=== PATIENT | female | born 1960 | race African-American/Black ===

== ENCOUNTER 2016-09-07 06:13 | Emergency (ER) | payer OTHER ==
[~2016-09-07] VITALS: Ht 167.6 cm; Wt 70.3 kg
[2016-09-07] MEDS ORDERED: Lidocaine 1% Plain 30 ml INJ ONE (07:00)
--- NOTE | 2016-09-07 07:33 | Emergency Room Report ---
History of Present Illness General Chief Complaint: Pain Source: Patient Present Illness HPI 56YO F With 2 days right knee pain with movement, swelling, "hotness." ?gout from "years ago." No recent meats/cheese/ETOH dietary indiscretion. No fever/ chills. Atraumatic. pain is sharp, 8/10, worse with full flexion. Denies URI , PNA, other recent infection or cuts. Denies taking ASA, other AC. Allergies: Coded Allergies: No Known Allergies (Unverified , 09/07/16) Patient History Past Medical History: other - ?Gout, IBS Past Surgical History: none, other - Right knee arthroscopy Pertinent Family History: none Social History: Denies: alcohol use, drug use, smoking Last Menstrual Period: Menopause Now: No Immunizations: UTD Reviewed Nursing Documentation: PMH: Agreed, PSxH: Agreed Nursing Documentation-PMH Past Medical History: No Stated History Review of Systems All Other Systems: negative except mentioned in HPI Physical Exam Vital Signs Date Time Temp Pulse Resp B/P Pulse Ox O2 Delivery O2 Flow Rate FiO2 09/07/16 06:28 99.0 97 16 137/77 100 Room Air Sp02 EP Interpretation: reviewed, normal General Appearance: normal inspection, well appearing, no apparent distress, alert, GCS 15, non-toxic Head: normocephalic, atraumatic Eyes: bilateral eye EOMI, bilateral eye PERRL ENT: normal ENT inspection, hearing grossly normal, normal voice Neck: normal inspection, full range of motion, supple, no bony tend Respiratory: normal inspection, lungs clear, normal breath sounds, no respiratory distress, no retraction, no wheezing Cardiovascular #1: regular rate, rhythm, no edema Gastrointestinal: normal inspection, normal bowel sounds, non tender, soft, no guarding, no hernia Genitourinary: no CVA tenderness Musculoskeletal: normal inspection, back normal, normal range of motion, Aleksander' s Sign negative, other - Right knee: Obvious effusion/swelling. Palpable warmth. No overlying erythema. Atraumatic. Neurologic: normal inspection, alert, oriented x3, responsive, wheel and caster repairer III-XII nml as tested, speech normal Psychiatric: normal inspection, judgement/insight normal, mood/affect normal Skin: normal inspection, normal color, no rash Medical Decision Making Diagnostic Impression: Primary Impression: Right knee pain Qualified Codes: M25.561 - Pain in right knee ER Course Labs: No leuks. H&H stable. INR WNL Afebrile. Not systemically ill. No known source of potential seeding of joint. Joint tap: 466 cells Unlikely septic joint. Possibly gout Rx Ibuprofen for inflammatory process PMD followup DC home Last Vital Signs Date Time Temp Pulse Resp B/P Pulse Ox O2 Delivery O2 Flow Rate FiO2 09/07/16 06:28 99.0 97 16 137/77 100 Room Air Status: improved Disposition: HOME, SELF-CARE Scripts Ibuprofen* (MOTRIN*) 600 Mg Tablet 600 MG ORAL THREE TIMES A DAY for knee pain, #30 TAB 0 Refills Prov: JUAN QUINTANILLA M.D. 09/07/16 Referrals: NOT CHOSEN [facility]/,REFERRING (PCP) JUAN QUINTANILLA M.D. Sep 07, 2016 07:33
[2016-09-07 08:12] LABS: BASOPHILS % (AUTO) 1.4 % (0.0-2.0); EOSINOPHILS % (AUTO) 1.4 % (0.0-3.0); LYMPHOCYTES % (AUTO) 38.4 % (20.0-45.0); MEAN CORPUSCULAR HEMOGLOBIN 29.1 PG (27.0-31.0); MEAN CORPUSCULAR HGB CONC 32.4 G/DL (32.0-36.0); MEAN CORPUSCULAR VOLUME 90 FL (80-99); MONOCYTES % (AUTO) 10.2 % (1.0-10.0); NEUTROPHILS % (AUTO) 48.6 % (45.0-75.0); PLATELET COUNT 365 K/UL (150-450); RED BLOOD COUNT 4.35 M/UL (4.20-5.40); RED CELL DISTRIBUTION WIDTH 12.5 % (11.6-14.8); WHITE BLOOD COUNT 4.6 K/UL (4.8-10.8)
[2016-09-07 08:21] LABS: ALANINE AMINOTRANSFERASE 17 U/L (3-33); ALBUMIN/GLOBULIN RATIO 1.5 (1.0-2.7); ANION GAP 14 (5-15); ASPARTATE AMINO TRANSFERASE 23 U/L (5-40); CALCIUM 9.9 mg/dL (8.6-10.2); CARBON DIOXIDE 26 mEQ/L (20-30); CHLORIDE 99 mEQ/L (98-107); CREATININE 0.8 mg/dL (0.5-0.9); GLOMERULAR FILTRATION RATE > 60 mL/min (>60); HEMOLYSIS 4; POTASSIUM 4.4 mEQ/L (3.4-4.9); SODIUM 139 mEQ/L (135-145); TOTAL PROTEIN 7.5 g/dL (6.6-8.7)
[2016-09-07 08:39] VITALS: BP 133/53
[2016-09-07 10:17] LABS: APPEARANCE, BODY FLUID CLOUDY; BD FL VOLUME 32 mL
[2016-09-07 10:18] LABS: BD FL SOURCE SYNOVIAL; BODY FLUID NUCLEATED CELLS 466 /CUMM; BODY FLUID RBC 1577 /CUMM; MONONUCLEAR WBC 12 %; POLYMORPHONUCLEAR WBC 88 %
[2016-09-07] MEDS ORDERED: IBUPROFEN600 MG ORAL (10:30)
[2016-09-07 10:45] VITALS: BP 133/53
--- NOTE | 2016-09-07 11:00 | Diagnostic Imaging Report ---
Indication: PAIN Technique: 3 views of the right knee Comparison: None Findings:No suprapatellar effusion. There is a superior pole patellar traction osteophyte. Sclerotic density is seen in the proximal tibia. There are medial and lateral osteophytes. There may be slight medial compartment degenerative joint space narrowing. No acute fractures. Impression:Degenerative changes, as described No acute bony trauma
== END 2016-09-07 10:45 | disposition home or self-care (01) ==
LOC: EMR 06:50
DX: M25.561 Pain in right knee (principal)
CPT/HCPCS: 36415; 73562; 80053; 85025; 85610; 89051; 89060; 99283; J2001

== ENCOUNTER 2016-12-12 19:17 | Emergency (ER) | payer OTHER ==
[~2016-12-12] VITALS: Ht 167.6 cm; Wt 72.6 kg
[~2016-12-12 19:17] MED LIST: IBUPROFEN600 MG ORAL
[2016-12-12 19:30] VITALS: BP 130/76
[2016-12-12] MEDS ORDERED: Methocarbamol 750mg tab ORAL ONE (19:45)
--- NOTE | 2016-12-12 19:46 | Emergency Room Report ---
History of Present Illness General Chief Complaint: Back Pain-No Injury Source: Patient Present Illness HPI 56YOF [employer] patient with 1 week right upper back pain Atraumatic Denies heavy lifting, known exacerbating activity Worse with movement Only mild improvement with home OTC med Also c/o dysuria for 1 day without assoc n/v/diarrhea, abd pain Allergies: Coded Allergies: No Known Allergies (Unverified , 09/07/16) Patient History Past Surgical History: none Pertinent Family History: none Social History: Denies: alcohol use, drug use, smoking Last Menstrual Period: NONE ANYMORE Now: No Immunizations: UTD Reviewed Nursing Documentation: PMH: Agreed, PSxH: Agreed Nursing Documentation-PMH Past Medical History: No Stated History Review of Systems All Other Systems: negative except mentioned in HPI Physical Exam Vital Signs Date Time Temp Pulse Resp B/P Pulse Ox O2 Delivery O2 Flow Rate FiO2 12/12/16 19:23 98.8 96 18 130/76 98 Room Air Sp02 EP Interpretation: reviewed, normal General Appearance: normal inspection, well appearing, no apparent distress, alert, GCS 15, non-toxic Head: normocephalic, atraumatic Eyes: bilateral eye EOMI, bilateral eye PERRL ENT: normal ENT inspection, hearing grossly normal, normal voice Neck: normal inspection, full range of motion, supple, no bony tend Respiratory: normal inspection, lungs clear, normal breath sounds, no respiratory distress, no retraction, no wheezing Cardiovascular #1: regular rate, rhythm, no edema Gastrointestinal: normal inspection, normal bowel sounds, non tender, soft, no guarding, no hernia Genitourinary: no CVA tenderness Musculoskeletal: other - Right upper scapula, palpable muscular ttp, spasm/ tightness Neurologic: normal inspection, alert, oriented x3, responsive, area forester III-XII nml as tested, motor strength/tone normal, speech normal Psychiatric: normal inspection, judgement/insight normal, mood/affect normal Medical Decision Making Diagnostic Impression: Primary Impression: Back pain Qualified Codes: M54.6 - Pain in thoracic spine Additional Impressions: Dysuria UTI (urinary tract infection) Qualified Codes: N30.01 - Acute cystitis with hematuria ER Course Upper right back pain -1 week duration - Palpable muscle spasm - Patient refused analgesia, accepted Robaxin - Has ibuprofen at home - Rx Robaxin Dysuria - UA: grossly infected - Rx Macrobid Last Vital Signs Date Time Temp Pulse Resp B/P Pulse Ox O2 Delivery O2 Flow Rate FiO2 12/12/16 19:23 98.8 96 18 130/76 98 Room Air Status: improved Disposition: HOME, SELF-CARE Scripts Nitrofurantoin Monohyd/M-Cryst* (MACROBID 100 MG*) 100 Mg Capsule 100 MG ORAL EVERY 12 HOURS for 7 Days, #14 CAP Prov: JUAN QUINTANILLA M.D. 12/12/16 Methocarbamol* (ROBAXIN-750*) 750 Mg Tablet 750 MG PO TID for 7 Days, #30 TAB 0 Refills Prov: JUAN QUINTANILLA M.D. 12/12/16 JUAN QUINTANILLA M.D. Dec 12, 2016 19:46
[2016-12-12 19:59] LABS: APPEARANCE,URINE SLIGHTLY CLOUDY; KETONES,URINE 1+ (NEGATIVE); LEUKOCYTE ESTERASE ,URINE 2+ (NEGATIVE); NITRITE,URINE POSITIVE (NEGATIVE); PH,URINE 5 (4.5-8.0); PROTEIN,URINE NEGATIVE (NEGATIVE); UROBILINOGEN,URINE NORMAL MG/DL (0.0-1.0)
[2016-12-12] MEDS ORDERED: ROBAXIN-750750 MG PO (20:03)
[2016-12-12] MEDS ORDERED: NITROFURANTOIN100 M2 ORAL (20:03)
[2016-12-12 20:20] VITALS: BP 128/74
[2016-12-12 20:42] LABS: BACTERIA,URINE MANY /HPF; SQUAMOUS EPITHELIAL CELL,UR OCCASIONAL /LPF (NONE/OCC)
== END 2016-12-12 20:20 | disposition home or self-care (01) ==
LOC: EMR 20:18
DX: M54.9 Dorsalgia, unspecified (principal); N39.0 Urinary tract infection, site not specified
CPT/HCPCS: 81003; 87086; 87181; 99284

== ENCOUNTER 2017-08-20 20:53 | Emergency (ER) | payer OTHER ==
[~2017-08-20] VITALS: Ht 167.6 cm; Wt 74.8 kg
[~2017-08-20 20:53] MED LIST changes: +NITROFURANTOIN100 M2 ORAL; +ROBAXIN-750750 MG PO
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
[2017-08-20 22:25] VITALS: BP 132/89
--- NOTE | 2017-08-21 11:41 | Diagnostic Imaging Report ---
Indication: Pain Knee pain/trauma 3 views of the right knee were obtained. Findings: No acute fracture, malalignment, or joint effusion are identified. Joint space narrowing is present with marginal spurs. The bones are osteopenic. Impression: Negative for acute findings.
== END 2017-08-20 22:28 | disposition home or self-care (01) ==
LOC: EMR 21:57
DX: S80.01XA Contusion of right knee, initial encounter (principal); V43.52XA Car driver injured in collision with other type car in traffic accident, initial encounter; Y92.410 Unspecified street and highway as the place of occurrence of the external cause
CPT/HCPCS: 99283

== ENCOUNTER 2017-11-22 03:52 | Emergency (ER) | payer OTHER ==
[~2017-11-22] VITALS: Ht 167.6 cm; Wt 70.3 kg
--- NOTE | 2017-11-22 04:23 | Emergency Room Report ---
History of Present Illness General Chief Complaint: Palpitations Source: Patient Present Illness HPI Is a 57-year-old female who is right-hand dominant. She presents with chief complaint of right arm pain and weakness for the last 4 days. She came in today because pain is going to her chest. No fever chills but no trauma. [place] heavy. Denies any neck pain. Worse with movement. No diaphoresis. No exertional component. Pain is achy in nature. 8 out of 10. Allergies: Coded Allergies: POLLEN EXTRACTS (Verified Allergy, Unknown, 08/20/17) Patient History Past Medical History: none, see triage record, old chart reviewed Past Surgical History: none Pertinent Family History: [place] Social History: Denies: smoking Now: No Immunizations: other Reviewed Nursing Documentation: PMH: Agreed Nursing Documentation-PM Past Medical History: No Stated History Review of Systems Eye: Denies: eye pain, blurred vision ENT: Denies: ear pain, nose congestion, throat swelling Respiratory: Denies: cough, shortness of breath Cardiovascular: Denies: chest pain, palpitations Gastrointestinal: Denies: abdominal pain, diarrhea, nausea, vomiting Musculoskeletal: Reports: muscle pain; Denies: back pain, joint pain Skin: Denies: rash Neurological: Denies: headache, numbness Endocrine: Denies: increased thirst, increased urine Hematologic/Lymphatic: Denies: easy bruising All Other Systems: negative except mentioned in HPI Physical Exam Vital Signs Date Time Temp Pulse Resp B/P (MAP) Pulse Ox O2 Delivery O2 Flow Rate FiO2 11/22/17 03:56 97.6 63 18 164/99 98 Room Air 97.5 vitals with high blood pressure Sp02 EP Interpretation: reviewed, normal General Appearance: well appearing, no apparent distress, alert Head: normocephalic, atraumatic Eyes: bilateral eye PERRL, bilateral eye EOMI ENT: hearing grossly normal, normal pharynx Neck: full range of motion, supple, no meningismus Respiratory: chest non-tender, lungs clear, normal breath sounds Cardiovascular #1: regular rate, rhythm, no murmur Gastrointestinal: normal bowel sounds, non tender, no mass, no organomegaly, no bruit, non-distended Musculoskeletal: back normal, gait/station normal, normal range of motion Psychiatric: mood/affect normal Skin: warm/dry Medical Decision Making Diagnostic Impression: Primary Impression: Arm pain, right ER Course Patient with right arm pain. No evidence of ACS, PE, dissection to name a few. If d-dimer is negative, can DC home with pain medication. If positive we'll get an ultrasound to rule out DVT. Lab Results Impression labs unremarkable EKG Diagnostic Results Rate: normal Rhythm: NSR ST Segments: no acute changes ASA given to the pt in ED: Yes Rhythm Strip Diag. Results Rhythm Strip Time: 06:39 EP Interpretation: yes Rate: 80 Rhythm: NSR, no PVC's, no ectopy Chest X-Ray Diagnostic Results Chest X-Ray Diagnostic Results : Chest X-Ray Ordered: Yes # of Views/Limited/Complete: 1 View Indication: Chest Pain EP Interpretation: Yes Interpretation: no consolidation, no effusion, no pneumothorax, no acute cardiopulmonary disease Impression: No acute disease Electronically Signed by: Diogenes Jimenez MD Last Vital Signs Date Time Temp Pulse Resp B/P (MAP) Pulse Ox O2 Delivery O2 Flow Rate FiO2 11/22/17 03:56 97.6 63 18 164/99 98 Room Air 97.5 Status: improved Disposition: HOME, SELF-CARE Condition: Stable Scripts Ibuprofen* (MOTRIN*) 600 Mg Tablet 600 MG ORAL THREE TIMES A DAY, #30 TAB 0 Refills Prov: DIOGENES JIMENEZ M.D. 11/22/17 Referrals: NOT CHOSEN [facility]/,REFERRING (PCP) Additional Instructions: Follow-up with your doctor in 7 days. Return if symptom worsen. DIOGENES JIMENEZ M.D. Nov 22, 2017 04:23
[2017-11-22] MEDS ORDERED: Ketorolac 30mg Inj IV ONE (04:30)
[2017-11-22] MEDS ORDERED: Aspirin Baby 81mg ORAL ONE (04:30)
[2017-11-22 05:05] VITALS: BP 155/72
[2017-11-22 05:07] LABS: BASOPHILS % (AUTO) 1.5 % (0.0-2.0); LYMPHOCYTES % (AUTO) 43.1 % (20.0-45.0); MEAN CORPUSCULAR VOLUME 88 FL (80-99); MONOCYTES % (AUTO) 6.5 % (1.0-10.0); NEUTROPHILS % (AUTO) 46.9 % (45.0-75.0); PLATELET COUNT 307 K/UL (150-450); RED BLOOD COUNT 4.11 M/UL (4.20-5.40); RED CELL DISTRIBUTION WIDTH 11.6 % (11.6-14.8); WHITE BLOOD COUNT 4.6 K/UL (4.8-10.8)
--- NOTE | 2017-11-22 05:22 | Diagnostic Imaging Report ---
EXAM: XR Chest, 1 View CLINICAL HISTORY: CP TECHNIQUE: Frontal view of the chest. COMPARISON: No relevant prior studies available. FINDINGS: Lungs: Unremarkable. No consolidation. Pleural space: Unremarkable. No pneumothorax. Heart: Unremarkable. No cardiomegaly. Mediastinum: Unremarkable. Bones/joints: Unremarkable. IMPRESSION: No acute cardiopulmonary process.
[2017-11-22 05:49] LABS: APPEARANCE,URINE CLEAR; BILIRUBIN, URINE NEGATIVE (NEGATIVE); COLOR,URINE PALE YELLOW; GLUCOSE, URINE (UA) NEGATIVE (NEGATIVE); KETONES,URINE NEGATIVE (NEGATIVE); LEUKOCYTE ESTERASE ,URINE NEGATIVE (NEGATIVE); NITRITE,URINE NEGATIVE (NEGATIVE); PH,URINE 6 (4.5-8.0); PROTEIN,URINE NEGATIVE (NEGATIVE); UROBILINOGEN,URINE NORMAL MG/DL (0.0-1.0)
[2017-11-22] MEDS ORDERED: IBUPROFEN600 MG ORAL (06:41)
[2017-11-22 06:54] LABS: ANION GAP 6 mmol/L (5-15); BLOOD UREA NITROGEN 25 mg/dL (7-18); CARBON DIOXIDE 26 MMOL/L (21-32); CHLORIDE 104 MMOL/L (98-107); CREATININE 0.9 MG/DL (0.55-1.30); POTASSIUM 4.5 MMOL/L (3.5-5.1); SODIUM 136 MMOL/L (136-145)
[2017-11-22 07:08] LABS: ALANINE AMINOTRANSFERASE 10 U/L (12-78); ALBUMIN 3.9 G/DL (3.4-5.0); ALBUMIN/GLOBULIN RATIO 1.2 (1.0-2.7); ALKALINE PHOSPHATASE 78 U/L (46-116); ASPARTATE AMINO TRANSFERASE 22 U/L (15-37); BILIRUBIN,TOTAL 0.4 MG/DL (0.2-1.0); CKMB 0.8 NG/ML (0.0-3.6); CREATINE KINASE 115 U/L (26-308)
[2017-11-22 07:55] VITALS: BP 134/83
--- NOTE | 2017-11-28 16:50 | Cardiology Report ---
APPROVED REPORT EKG Measurement Heart [id number] SC [id number] [id number] Normal sinus rhythm Low voltage QRS Cannot rule out Anterior infarct, age undetermined Abnormal ECG
== END 2017-11-22 07:56 | disposition home or self-care (01) ==
LOC: EMR 04:18
DX: M79.601 Pain in right arm (principal); R07.9 Chest pain, unspecified; Z91.018 Allergy to other foods; Z82.49 Family history of ischemic heart disease and other diseases of the circulatory system
CPT/HCPCS: 36415; 71045; 80053; 81003; 82550; 82553; 84484; 85025; 85379; 93005; 99283; J1885

== ENCOUNTER 2018-09-01 17:26 | Emergency (ER) | payer OTHER ==
[~2018-09-01] VITALS: Ht 165.7 cm; Wt 71.7 kg
[2018-09-01] MEDS ORDERED: TRAMADOL HCL50 MG ORAL (17:37)
--- NOTE | 2018-09-01 17:41 | NUR ---
ED Nurse Note: PT WALKED IN TO ER TODAY FROM HOME. AOX4. PT C/O RIGHT EAR DISCOMFORT AND DECREASED HEARING X 3-4 DAYS AGO. PT DENIES ANY PAIN OR DISCHARGE AT THIS TIME. PT DENIES ANY RECENT TRAUMA OR INJURY. HOWEVER, PT DOES ADMIT SHE HAS BEEN TRYING TO CLEAN HER EARS WITH QTIPS.
[2018-09-01 17:42] VITALS: BP 136/86
--- NOTE | 2018-09-01 18:10 | Emergency Room Report ---
History of Present Illness General Chief Complaint: Earache Source: Patient Present Illness HPI 58-year-old female presents to the emergency department complaining of muffled hearing with sensation of fullness that she describes as a 5 out of 10 in severity discomfort in the right ear progressive 5 days. Patient states she's had multiple attempts using a Q-tip to try to clean her ear but she states that she has had no relief with her attempts. Patient denies external ear pain denies discharge, blood, swollen tender lymph nodes fevers or chills. Patient denies trauma to the ear. Denies tinnitus or vertigo. Allergies: Coded Allergies: POLLEN EXTRACTS (Verified Allergy, Unknown, 08/20/17) Patient History Past Medical History: see triage record Past Surgical History: none Pertinent Family History: none Last Menstrual Period: Menopausal Reviewed Nursing Documentation: PMH: Agreed; PSxH: Agreed Review of Systems All Other Systems: negative except mentioned in HPI Physical Exam Vital Signs Date Time Temp Pulse Resp B/P (MAP) Pulse Ox O2 Delivery O2 Flow Rate FiO2 09/01/18 17:32 99.1 69 19 143/92 99 Room Air Sp02 EP Interpretation: reviewed, normal General Appearance: no apparent distress, alert, GCS 15, non-toxic Head: normocephalic, atraumatic Eyes: bilateral eye normal inspection, bilateral eye PERRL ENT: hearing grossly normal, normal voice, other - Impacted cerumen of the right ear, no external ttp, no canal swelling. Neck: full range of motion Respiratory: lungs clear, normal breath sounds, speaking full sentences Cardiovascular #1: regular rate, rhythm Gastrointestinal: soft Musculoskeletal: back normal, gait/station normal, normal range of motion, non- tender Neurologic: alert, oriented x3, responsive, motor strength/tone normal, sensory intact, speech normal, grossly normal Psychiatric: judgement/insight normal Skin: normal color, no rash, warm/dry, well hydrated Lymphatic: no adenopathy Medical Decision Making PA Attestation Dr. Ruiz is my supervising Physician whom patient management has been discussed with. Diagnostic Impression: Primary Impression: Impacted cerumen of right ear ER Course 58-year-old female presents to the emergency department complaining of muffled hearing with sensation of fullness that she describes as a 5 out of 10 in severity discomfort in the right ear progressive 5 days. Patient states she's had multiple attempts using a Q-tip to try to clean her ear but she states that she has had no relief with her attempts. Patient denies external ear pain denies discharge, blood, swollen tender lymph nodes fevers or chills. Patient denies trauma to the ear. Denies tinnitus or vertigo. Ddx considered but are not limited to OM, OE, mastoiditis, TM perforation, FB Vital signs: are WNL, pt. is afebrile H&PE are most consistent with Impacted cerumen of the Right ear canal ORDERS: none required at this time, the diagnosis is clinical -OTOSCOPY: Impacted cerumen in the Right ear canal. - Cerumen Removal: verbal consent was obtained by pt. ear curette was used to remove the cerumen from the RIGHT ear canal. Pt. tolerated well, there were no complications. re-evaluation pt. is able to hear again, there is no evidence of TM infection or rupture, canal is WNL. ED INTERVENTIONS: None required at this time. DISCHARGE: At this time pt. is stable for d/c to home. With rx for Debrox. Will provide printed patient care instructions, and any necessary prescriptions. Care plan and follow up instructions have been discussed with the patient prior to discharge. Last Vital Signs Date Time Temp Pulse Resp B/P (MAP) Pulse Ox O2 Delivery O2 Flow Rate FiO2 09/01/18 17:42 98.9 66 18 136/86 100 Room Air Disposition: HOME, SELF-CARE Condition: Stable Scripts Carbamide Peroxide (EAR WAX DROPS) 15 Ml Drops 4 DROP OT DAILY, #15 ML Prov: Terri Ji 09/01/18 Patient Instructions: Cerumen Impaction Additional Instructions: Take medications as directed. Follow up with a Primary Care Provider in 3-5 days, even if your symptoms have resolved. --Please review list of primary care clinics, if you do not already have a primary care provider Return sooner to ED if new symptoms occur, or current symptoms become worse. - Please note that this Emergency Department Report was dictated using [email or web address] design engineer technology software, occasionally this can lead to erroneous entry secondary to interpretation by the dictation equipment. Terri Ji Sep 01, 2018 18:10
[2018-09-01] MEDS ORDERED: EAR WAX DROPS15 M1 OT (18:20)
[2018-09-01 18:39] VITALS: BP 132/80
--- NOTE | 2018-09-01 18:39 | NUR ---
ED Nurse Note: PT LAYING PEACEFULLY IN BED IN NAD. AOX4. PRESCRIPTION AND DISCHARGE PAPERWORK EXPLAINED TO PT. PT VERBALIZES UNDERSTANDING AND ALL QUESTIONS ANSWERED. PRESCRIPTION AND DISCHARGE PAPERWORK GIVEN TO PT AND ID WRISTBAND REMOVED. PT WALKED OUT OF ER WITH STEADY GAIT AND ALL BELONGINGS.
== END 2018-09-01 18:40 | disposition home or self-care (01) ==
LOC: EMR 18:05
DX: H61.21 Impacted cerumen, right ear (principal); Z91.09 Other allergy status, other than to drugs and biological substances
CPT/HCPCS: 99283